=== PATIENT | male | born 2000 ===

== ENCOUNTER 2020-11-03 11:23 | Emergency (ER) | payer BC, SELFPAY ==
[2020-11-03 11:43] VITALS: BP 136/75; PULSE 76; RESP 16; TEMP 36.6; O2SAT 99; BMI 33.9
--- NOTE | 2020-11-03 11:56 | ED_ITS ---
HPI - Wound/Laceration General Chief Complaint: Wound/Laceration Stated Complaint: Puncture wound Time Seen by Provider: 11/03/20 11:49 History of Present Illness HPI narrative: The patient complains of a small puncture wound to the right knee which happened when a cutting tool dropped from his hand and punctured the area, he has no pain no difficulty bending or moving the knee no numbness weakness or tingling and is walking normally Related Data Previous Rx's Medication Instructions Recorded cephalexin 500 mg tablet 500 mg PO TID 2 Days #6 tab 11/03/20 Allergies Allergy/AdvReac Type Severity Reaction Status Date / Time No Known Allergies Allergy Verified 11/03/20 11:42 Review of Systems Review of Systems: Positive for right knee puncture wound Negatives are no dizziness no weakness no numbness weakness or tingling no joint pain no difficulty walking no active bleeding Yes all other systems are reviewed and are negative [facility] Past Medical History Source: nursing notes reviewed Surgical History (Updated 11/03/20 @ 11:48 by Valencia Barrientos) History of tonsillectomy and adenoidectomy Social History Social History Advance Directives: Yes Advance Directives Information Provided: Yes Advance Directives on File: No Physical Exam Vital Signs: Vital Signs: Last Vital Signs Temp 97.9 F 11/03/20 11:43 Pulse 76 11/03/20 11:43 Resp 16 11/03/20 11:43 BP 136/75 11/03/20 11:43 Pulse Ox 99 11/03/20 11:43 Body Mass Index 33.9 General appearance no acute distress The head is normocephalic atraumatic Neck is supple Respiratory no distress Extremities full range of motion x4 Gait is normal Right knee has a 1 cm laceration which is not bleeding not gaping, there is full range of motion in the knee there is no tenderness or swelling it is neurovascular intact distal Course Course Course Narrative: Superficial puncture wound is cleansed and irrigated with normal saline, patient is given a tetanus shot Procedure note the laceration after was clean started bleeding so 2 sutures were placed anesthesia was 3 cc of 1% lidocaine No foreign body was seen Wound was copiously irrigated and 2 4-0 nylon sutures were placed in 1 cm right knee laceration Discharge Plan Discharge Clinical Impression: Laceration Patient Disposition: Home, Self-Care Additional Instructions: Stitches out in 5-7 days Apply antibiotic ointment and keep covered for several days Return any time for redness swelling discharge from wound any sign of infection or any concerns You got a tetanus shot We are doing 2 days of preventative antibiotic Prescriptions: New cephalexin 500 mg tablet 500 mg PO TID 2 Days Qty: 6 RF: 0 Interventions: ED Discharge Assessment Last Done: 11/03/20 12:38 Discharge Date/Time: 11/03/20 12:40
[2020-11-03] MEDS: Diphth,Pertus(ACell),Tet Adult 0.5 ML SYRINGE IM (12:03)
[2020-11-03] MEDS: Lidocaine HCl 1 % MPF 5 ML VIAL SUBCUT (12:13)
[2020-11-03] MEDS: cephALEXin 500 MG CAPSULE PO (12:37)
== END 2020-11-03 12:40 | disposition home or self-care (01) ==
PROVIDERS: Emergency Provider Emergency Medicine
DX: S81.011A Laceration without foreign body, right knee, initial encounter (principal); W20.8XXA Other cause of strike by thrown, projected or falling object, initial encounter; Y93.9 Activity, unspecified; Y92.9 Unspecified place or not applicable; Y99.9 Unspecified external cause status
CPT/HCPCS: 12001; 90471; 90715; 99283; 99284

== ENCOUNTER 2024-04-08 10:46 | Emergency (ER) | payer BC, SELFPAY ==
[2024-04-08] VITALS (8 sets, daily range): BP systolic 132–156; BP diastolic 70–84; PULSE 77–99; RESP 16–19; TEMP 36.8–37.1; O2SAT 98–100; BMI 33.1
--- NOTE | ~2024-04-08 | CT_ITS ---
EXAMINATION: CTA NECK WITH CONTRAST (STROKE) CTA BRAIN WITH CONTRAST (STROKE) CLINICAL INFORMATION: Suspect acute stroke. Assess for major vessel occlusion. Please call report. COMPARISON: None available. TECHNIQUE: CTA of the head and neck was performed in the axial plane from the mediastinum to the skull vertex using 7 0 mL Omnipaque 350 intravenous contrast. Additional reformatted multiplanar images including maximum intensity projection MIP images are generated on the CT workstation. This CT examination was performed using dose optimization techniques as appropriate, variously including the following: *Automated exposure control *Adjustment of mA and/or kV according to patient size (this includes techniques or standardized protocols for targeted exams where dose is matched to indication/reason for exam; i.e. extremities or head) *Use of iterative reconstruction technique FINDINGS: The degree of stenosis determined by criteria similar to NASCET. Brain: Postcontrast there is no abnormal enhancing mass, lesion, edema or midline shift. There is symmetrical perfusion seen to bilateral cerebral cortex and in the posterior fossa. Neck CTA: The thoracic arch is widely patent with a normal three-vessel branching. Origins of bilateral common carotid and vertebral arteries are widely patent. Bilateral common carotid, bifurcation into internal and external carotid arteries are normal. Bilateral internal carotid arteries are widely patent throughout the neck extending to the skull base. Both vertebral arteries are patent. The left vertebral artery appears dominant. There are patent throughout their entire course. Bilateral jugular veins are patent as well the left being dominant. Neck: There is diffuse mucoperiosteal thickening bilateral maxillary, ethmoid sinuses. The mastoid sinuses are clear. Visualized bilateral parotid, submandibular glands and thyroid lobes are symmetrical. The entire nasopharyngeal and oropharyngeal airway is widely patent. No enhancing neck mass or lymphadenopathy seen. No abnormal size axillary lymph nodes seen. The thyroid lobes are symmetric and normal. The lung apices are clear. There is reversal of cervical lordosis with vertebral heights, alignment and disc heights are normal. Brain CTA: Bilateral internal carotid arteries along the petrous, cavernous and supraclinoid ICA segments are widely patent. No aneurysm or narrowing seen. The ICA CCA branch normally into anterior and middle several arteries. No aneurysm or atherosclerotic narrowing of thrombus seen. Both vertebral arteries March to form basilar artery. The basilar artery terminates into bilateral posterior cerebral arteries which are widely patent. The secondary, tertiary arteries and the capillaries reveal homogeneous enhancement of the cerebral cortex and medulla without any vascular defect. The venous sinus is opacified with a dominant right transverse sinus. The sigmoid sinuses are patent as well. A dominant right jugular vein is seen. CT/CT angio head neck STROKE IMPRESSION: Unremarkable CTA neck and brain: There is a dominant left vertebral artery is noted. This critical test result is communicated to: Hardy Lau by tiger text at 1.30 pm. Electronically signed by: Jersey Gentile MD 04/08/2024 01:31 PM [facility]
--- NOTE | ~2024-04-08 | CT_ITS ---
EXAMINATION: CT HEAD WITHOUT CONTRAST (STROKE PROTOCOL) CLINICAL INFORMATION: Stroke protocol. Difficulty with word finding COMPARISON: None available. TECHNIQUE: Contiguous axial imaging was performed from the skull base to vertex without intravenous administration of contrast. This CT examination was performed using dose optimization techniques as appropriate, variously including the following: *Automated exposure control *Adjustment of mA and/or kV according to patient size (this includes techniques or standardized protocols for targeted exams where dose is matched to indication/reason for exam; i.e. extremities or head) *Use of iterative reconstruction technique FINDINGS: There is no acute intra-axial, extra-axial bleed, masses or midline shift. There is no acute infarction evolution. The marcelo to white matter differentiation is maintained. The lateral ventricles are symmetrical in size and configuration without enlargement. Bone windows reveal no calvarial abnormality. There is diffuse mucoperiosteal thickening almost opacifying the entire bilateral maxillary sinuses. Mild mucoperiosteal thickening involving ethmoid sinuses. Rest of the paranasal sinuses and mastoid air cells are well-aerated. Bone windows reveal no calvarial abnormality. There is no scalp soft tissue abnormality. CT/CT head for STROKE IMPRESSION: No acute intracranial process seen. This critical result was discussed with Jerry Julian at 11:20 a.m. on 04/08/2024. It was ascertained that the content and urgency of the report was understood at the time of direct communication. Electronically signed by: Jersey Gentile MD 04/08/2024 11:33 AM [facility] [place]
--- NOTE | 2024-04-08 10:57 | ECG_ITS ---
Test Reason : stroke Blood Pressure : / mmHG Vent. Rate : 081 BPM Atrial Rate : 081 BPM P-R Int : 138 ms QRS Dur : 098 ms QT Int : 378 ms P-R-T Axes : 044 052 024 degrees QTc Int : 439 ms Normal sinus rhythm Normal ECG No previous ECGs available Referred By: Hardy Monique Electronically Signed By:JAYDEN JOHNSON MD
--- NOTE | 2024-04-08 11:05 | ED.GENADULT ---
HPI - General Adult General Chief complaint: Altered Mental Status Stated complaint: VISUAL CHANGES, R HAND NUMBNESS PER EMS Time Seen by Provider: 04/08/24 10:57 Source: patient Mode of arrival: ambulatory Limitations: no limitations History of Present Illness ED Provider: LEONILA Lau HPI narrative: 23-year-old male presents with difficulty with word finding, trouble concentrating, bilateral dark in vision, posterior headache ongoing suddenly since 0800. Patient reports nothing like this has ever happened to him before. He reports he just does not feel right. He does report at some point his right hand/right upper extremity and right side of face went numb however this resolved. He does report he was sick around [place]. He denies weakness, fevers, chills, dizziness, chest pain, shortness of breath, nausea, vomiting, abdominal pain No recent falls or trauma. No chiropractic manipulation. No neck pain. NIHSS-0 on exam Related Data Previous Rx's ?Medication ?Instructions ?Recorded cephalexin 500 mg tablet 500 mg PO TID 2 days #6 tabs 11/03/20 diphenhydramine HCl 25 mg capsule 25 mg PO TID PRN allergic reaction 04/08/24 (Benadryl) #20 caps ketorolac 10 mg tablet 10 mg PO TID PRN pain 5 days #15 04/08/24 tabs metoclopramide HCl 10 mg tablet 10 mg PO Q6H PRN headache #20 tabs 04/08/24 (Reglan) Allergies Allergy/AdvReac Type Severity Reaction Status Date / Time No Known Allergies Allergy Verified 04/08/24 11:08 Review of Systems Review of Systems: Yes all other systems are reviewed and are negative [facility] Past Medical History Attestation statement: The following information was validated with the patient. Source: old records reviewed and nursing notes reviewed Surgical History History of tonsillectomy and adenoidectomy Social History Social History Smoked in Last 30 Days: No Use of substances other than those prescribed or required for medical reasons: No Advance Directives: No Advance Directives Information Provided: Yes Do you have a plan to hurt others: No Plan Physical Exam ED Vital Signs: Vital Signs - 24 hr 04/08/24 11:00 04/08/24 11:35 04/08/24 12:18 Temperature 98.5 F Pulse Rate 80 77 84 Respiratory Rate 16 18 19 Blood Pressure 135/72 135/84 145/78 H Pulse Oximetry 99 98 100 Oxygen Delivery Method Room Air Room Air Room Air 04/08/24 12:45 04/08/24 13:41 04/08/24 15:55 Temperature 98.3 F 98.7 F Pulse Rate 85 90 99 Respiratory Rate 18 18 16 Blood Pressure 143/81 H 145/75 H 132/70 Pulse Oximetry 100 100 98 Oxygen Delivery Method Room Air Room Air Room Air BMI result Body Mass Index 33.1 vss Appearance: Alert.? Oriented X3.? No acute distress.?+ intermittent word salad ( resolved on revaluation) Head: Normocephalic, atraumatic, no step-offs or deformities Eyes: Pupils equal, round and reactive to light.? Neck: Normal inspection.? Neck supple.? CVS: Normal heart rate and rhythm.? Pulses normal.? Respiratory: No respiratory distress.? Breath sounds normal.? Abdomen: Soft and nontender.? Skin: Skin warm and dry.? Normal skin color.? Normal skin turgor.? Extremities: No lower extremity edema.? No calf ttp. 5/5 strength to bilateral upper and lower extremities Neuro: Oriented X 3.? No motor deficit.? No sensory deficit. CN 2-12 intact Course Reevaluation(s) Reevaluation #1: CBC unremarkable. Chemistry with no acute findings needing intervention. Point of care normal. INR normal. Patient's head CT no acute intracranial process seen. Time: 11:57 Reevaluation #2: Patient has been sleeping, without complaints. No more episodes of aphasia or word salad. Patient's family at bedside. Patient did test positive for RSV. This could explain his viral symptoms have been ongoing since . CTA still pending Time: 12:45 Reevaluation #3: CTA unremarkable CTA neck and brain. There is a dominant left vertebral artery. This case was discussed with my attending Dr. Bar. And it was also mentioned to neurology Dr. Brower who thinks likely complex migrane. Time: 13:38 Additional Reevaluation(s): Sign out to Murray Vaca 3:00 p.m. received sign-out with the patient in stable condition and reassessment pending. 4:05 PM reassessment at this time, patient is awake and alert and sitting in the exam stretcher. Patient confirms that he had URI symptoms earlier in the week which have since resolved, including rhinorrhea and fever. He reports his symptoms today of headache, paresthesias, and aphasia have completely resolved. He is feeling much better. Denies any headache dizziness, paresthesias, neck or back pain. He feels that his mentation is at baseline as well as his family agrees who are at the bedside. I reviewed all labs and imaging findings with the patient and his family at the bedside, per his request. Slight elevation in CRP which is likely due to RSV infection. He is afebrile and hemodynamically stable. There is no leukocytosis. He is not having any neck pain at this time. Patient did question the possibility of meningitis. Given above, this is less likely however I have offered to perform an LP and have discussed all risks and benefits with the patient to perform lumbar puncture. Patient has refused at this time it would like to monitor symptoms. He agrees that if symptoms return, worsen or other any other concerns he will return to the emergency department. Of note, slight elevation in triglycerides which the patient will follow up with his PCP. Patient expresses understanding of all discharge instructions and has no further questions at this time. Medications Administered Discontinued Medications Generic Name Dose Route Start Last Admin Trade Name Rylan PRN Reason Stop Dose Admin Diphenhydramine HCl 25 mg 04/08/24 11:06 04/08/24 12:15 Diphenhydramine Hcl 50 Mg/Ml Vial IVPUSH 04/08/24 11:07 25 mg ONCE ONE Administration Iohexol 100 ml 04/08/24 11:18 04/08/24 11:21 Iohexol 350 Mg/Ml 100 Ml Infus..Btl IV 04/08/24 11:19 70 ml ONCE ONE Administration Ketorolac Tromethamine 15 mg 04/08/24 11:06 04/08/24 12:15 Ketorolac Tromethamine 15 Mg/Ml Vial IVPUSH 04/08/24 11:07 15 mg ONCE ONE Administration Metoclopramide HCl 10 mg 04/08/24 11:06 04/08/24 12:15 Metoclopramide Hcl 10 Mg/2 Ml Vial IVPUSH 04/08/24 11:07 10 mg ONCE ONE Administration Morphine Sulfate 2 mg 04/08/24 14:33 04/08/24 14:55 Morphine Sulfate 2 Mg/Ml Cartridge IVPUSH 04/08/24 14:34 2 mg ONCE ONE Administration Protocol Medical Decision Making Medical Decision Making [facility] Narrative: 1106 23-year-old male presents with difficulty with word finding, aphasia, posterior headache since 0800 PE + intermittent word salad strength 5/5/ UE and LE. Hx and pe concerning for complex migraine vs tia vs stroke. Unlikely carotid dissection, aneurysm rupture. No meningeal signs, unlikely encephalitis, meningitis. Patient reports recent illness will rule out viral illness Plan stroke protocol, labs Differential Diagnosis Differential Diagnoses: The differential diagnosis associated with the presentation includes (Hx and pe concerning for complex migraine vs tia vs stroke. Unlikely carotid dissection, aneurysm rupture. No meningeal signs, unlikely encephalitis, meningitis) Admission/Observation Consideration of admission/observation: Escalation of care including admission/observation considered Consult Healthcare Provider Management of the patient was discussed with: Director Of Academic Support Lab Data [facility] Lab Attestation statement: I reviewed the patient's lab results. 04/08/24 11:45 04/08/24 11:45 Labs: Lab Results 04/08/24 04/08/24 04/08/24 Range/Units 11:05 11:07 11:45 WBC 7.7 (4.8-10.8) X10*3/uL RBC 5.02 (4.60-5.80) X10*6/uL Hgb 15.4 (14.0-18.0) g/dl Hct 42.4 (42.0-52.0) % MCV 84.5 (80.0-98.0) fL MCH 30.7 (27.0-33.0) pg MCHC 36.3 H (31.0-36.0) g/dl RDW 11.8 (11.0-16.0) % Plt Count 338 (160-400) X10*3/uL MPV 8.8 L (9.4-12.4) fL Immature Gran % (Auto) 0.4 (0.0-0.4) % Neut % (Auto) 53.8 (45-73) % Lymph % (Auto) 34.7 (20-40) % [place] % (Auto) 9.3 (2-11) % Eos % (Auto) 1.7 (0-4) % Baso % (Auto) 0.1 (0-2) % Lymph # (Auto) 2.7 (1.2-4.9) X10*3/uL [place] # (Auto) 0.7 (0.1-1.2) X10*3/uL Eos # (Auto) 0.1 (0.0-0.4) X10*3/uL Baso # (Auto) 0.0 (0.0-0.2) X10*3/uL Abs Immat Gran (auto) 0.03 (0.00-0.03) X10*3/uL Absolute Neuts (auto) 4.1 (2.0-8.3) x10*3/uL Absolute Nucleated RBC 0.000 (0.0-0.012) X10*3/uL Nucleated RBC % (auto) 0.0 (0.0-0.2) /100WBC ESR 7 (0-15) MM/HR PT 12.0 (10.9-12.4) SEC Whole Blood PT 12.8 (11.1-13.5) sec INR 1.0 (0.9-1.1) Whole Blood INR 1.1 (0.9-1.1) APTT 29.5 (26.0-36.8) SEC Sodium 136 (135-145) mmol/L Potassium 3.6 (3.3-5.1) mmol/L Chloride 106 (96-108) mmol/L Carbon Dioxide 23 (22-29) mmol/L Anion Gap 11 L (12-20) BUN 10 (9-16) mg/dL Creatinine 0.74 (0.5-1.4) mg/dL Estim Creat Clear Calc 169.9 Estimated GFR > 60 POC Glucose 96 (60-115) mg/dL Random Glucose 92 (60-115) mg/dL Calcium 9.1 (8.4-10.2) mg/dL Troponin I High Sens < 2.7 (<3.5-35.0) ng/L C-Reactive Protein 0.67 H (< or = 0.50) mg/dL Triglycerides 172 H (<150) mg/dL Cholesterol 143 (<200) mg/dL LDL Cholesterol, Calc 87 (<100) mg/dL HDL Cholesterol 22 L (>40) mg/dL Influenza Type A (PCR) (Negative) Influenza Type B (PCR) (Negative) RSV RNA Qual (PCR) (Negative) SARS-CoV-2 RNA (RT-PCR) (Negative) 04/08/24 Range/Units 12:01 WBC (4.8-10.8) X10*3/uL RBC (4.60-5.80) X10*6/uL Hgb (14.0-18.0) g/dl Hct (42.0-52.0) % MCV (80.0-98.0) fL MCH (27.0-33.0) pg MCHC (31.0-36.0) g/dl RDW (11.0-16.0) % Plt Count (160-400) X10*3/uL MPV (9.4-12.4) fL Immature Gran % (Auto) (0.0-0.4) % Neut % (Auto) (45-73) % Lymph % (Auto) (20-40) % [place] % (Auto) (2-11) % Eos % (Auto) (0-4) % Baso % (Auto) (0-2) % Lymph # (Auto) (1.2-4.9) X10*3/uL [place] # (Auto) (0.1-1.2) X10*3/uL Eos # (Auto) (0.0-0.4) X10*3/uL Baso # (Auto) (0.0-0.2) X10*3/uL Abs Immat Gran (auto) (0.00-0.03) X10*3/uL Absolute Neuts (auto) (2.0-8.3) x10*3/uL Absolute Nucleated RBC (0.0-0.012) X10*3/uL Nucleated RBC % (auto) (0.0-0.2) /100WBC ESR (0-15) MM/HR PT (10.9-12.4) SEC Whole Blood PT (11.1-13.5) sec INR (0.9-1.1) Whole Blood INR (0.9-1.1) APTT (26.0-36.8) SEC Sodium (135-145) mmol/L Potassium (3.3-5.1) mmol/L Chloride (96-108) mmol/L Carbon Dioxide (22-29) mmol/L Anion Gap (12-20) BUN (9-16) mg/dL Creatinine (0.5-1.4) mg/dL Estim Creat Clear Calc Estimated GFR POC Glucose (60-115) mg/dL Random Glucose (60-115) mg/dL Calcium (8.4-10.2) mg/dL Troponin I High Sens (<3.5-35.0) ng/L C-Reactive Protein (< or = 0.50) mg/dL Triglycerides (<150) mg/dL Cholesterol (<200) mg/dL LDL Cholesterol, Calc (<100) mg/dL HDL Cholesterol (>40) mg/dL Influenza Type A (PCR) NEGATIVE (Negative) Influenza Type B (PCR) NEGATIVE (Negative) RSV RNA Qual (PCR) POSITIVE A (Negative) SARS-CoV-2 RNA (RT-PCR) NEGATIVE (Negative) Independent Interpretation I performed an independent interpretation of an: CT Scan (CT/CT angio head neck STROKE IMPRESSION: Unremarkable CTA neck and brain: There is a dominant left vertebral artery is noted. This critical test result is communicated to: Hardy Lau by tiger text at 1.30 pm.) Interpretation: CT/CT head for STROKE IMPRESSION: No acute intracranial process seen. This critical result was discussed with Jerry Julian at 11:20 a.m. on 04/08/2024. It was ascertained that the content and urgency of the report was understood at the time of direct communication. Electronically signed by: Jersey Gentile MD 04/08/2024 11:33 AM [facility] Radiology Impression Discussion of test interpretation with radiology: I have reviewed the radiologist's reading. Independent Historian Clinical information obtained from an independent historian. History obtained from or confirmed by: EMS Tests considered The following testing was considered but not selected: NIH Stroke Scale/Score (NIHSS) from [email or web address] on 04/08/2024 All calculations should be rechecked by clinician prior to use RESULT SUMMARY: 1 points NIH Stroke Scale INPUTS: 1A: Level of consciousness ?> 0 = Alert; keenly responsive 1B: Ask month and age ?> 0 = Both questions right 1C: 'Blink eyes' & 'squeeze hands' ?> 0 = Performs both tasks 2: Horizontal extraocular movements ?> 0 = Normal 3: Visual galdamez ?> 0 = No visual loss 4: Facial palsy ?> 0 = Normal symmetry 5A: Left arm motor drift ?> 0 = No drift for 10 seconds 5B: Right arm motor drift ?> 0 = No drift for 10 seconds 6A: Left leg motor drift ?> 0 = No drift for 5 seconds 6B: Right leg motor drift ?> 0 = No drift for 5 seconds 7: Limb Ataxia ?> 0 = No ataxia 8: Sensation ?> 0 = Normal; no sensory loss 9: Language/aphasia ?> 1 = Mild-moderate aphasia: some obvious changes, without significant limitation 10: Dysarthria ?> 0 = Normal 11: Extinction/inattention ?> 0 = No abnormality Critical Care Time Critical Care Time Critical Care Time: Yes Total Critical Care Time: 45 Attestation: I attest to this time spent taking care of the patient, obtaining history, physical, reviewing labs, imaging, treatment of patients condition +/- specialist/hospitalist consult Discharge Plan Discharge Clinical Impression: Acute migraine, Aphasia Respiratory syncytial virus (RSV) infection Qualifiers: Laterality: unspecified laterality Patient Disposition: Home, Self-Care Instructions: Migraine Headache (ED), Aphasia (DC) Additional Instructions: Watch for any worsening symptoms, severe pain, vision changes, or any other concern return immediately to the emergency department. Your viral swab is positive for RSV. Of note, your triglycerides are elevated at 172 and your HDL cholesterol is low at 22. Your total cholesterol is 143, normal range. Your LDL cholesterol is 87, normal range. You should have your cholesterol rechecked by your PCP. We will contact you if any remaining lab tests pending related to Lyme are positive. Take your medications as prescribed. If you were prescribed antibiotics today, it is important that you take your medication to their entirety, do not skip any doses, do not finish them early. Follow-up with your primary care provider this week. Return to the emergency department with new or worsening symptoms. Such as fevers, chills, chest pain, shortness of breath, nausea, vomiting, dizziness, headache, vision changes, lethargy In case of emergency call 911 You were given a migraine cocktail this includes Benadryl, Reglan and Toradol. Please take Reglan and Benadryl together, taking Reglan alone can lead to involuntary muscle spasms. Toradol has been sent to your pharmacy, you tolerated this well in the department. Please take this as prescribed do not take this with ibuprofen, or other NSAIDs, do not mix this with alcohol. Side effects of this medication including increased risk for bleeding and possible kidney injury. Prescriptions: New ketorolac 10 mg tablet 10 mg PO TID PRN (Reason: pain) 5 Days Qty: 15 0RF Rx Instructions: Tolerated IM or IV in department diphenhydramine HCl [Benadryl] 25 mg capsule 25 mg PO TID PRN (Reason: allergic reaction) Qty: 20 0RF metoclopramide HCl [Reglan] 10 mg tablet 10 mg PO Q6H PRN (Reason: headache) Qty: 20 0RF No Action cephalexin 500 mg tablet 500 mg PO TID 2 Days Qty: 6 0RF Rx Instructions: Antibiotic to prevent infection 2 day course Referrals: Atul Perez DO [Primary Care Provider] - 2 days Stand Alone Forms: Work/School Release Print Language: Hungarian
[2024-04-08 11:09] LABS: Prothrombin Time Whole Bld POC 12.8 sec (11.1-13.5); ~PT, ~INR - Anti Coag Clinic 1.1 (0.9-1.1)
[2024-04-08 11:10] LABS: Glucose, Whole Blood 96 mg/dL (60-115)
[2024-04-08] MEDS: iohexoL 350 MG/ML 100 ML INFUS..BTL IV (11:21)
[2024-04-08 11:50] LABS: MANUAL DIFF FLAG NO
--- NOTE | 2024-04-08 11:50 | PC.NURSE ---
pt returned from CT at this time. vss and up to date. nsr on the teletypesetter monitor. labs obtained/sent to lab. ekg performed by tech. neuros currently intact. face symmetrical. no slur in speech noted. pt able to speak in full/clear sentences w/o difficulty. strength equal bilaterally. pt on RA w/o difficulty. no sob/wob noted. respirations even/unlabored. family bedside for support. plan of care ongoing. call gregory placed within reach.
[2024-04-08 11:53] LABS: Basophils Percent Auto 0.1 % (0-2); Eosinophils Absolute Auto 0.1 X10*3/uL (0.0-0.4); Eosinophils Percent Auto 1.7 % (0-4); Hematocrit 42.4 % (42.0-52.0); Hemoglobin 15.4 g/dl (14.0-18.0); Imm Gran Abs Auto 0.03 X10*3/uL (0.00-0.03); Imm Gran Pct Auto 0.4 % (0.0-0.4); Lymphocytes Absolute Auto 2.7 X10*3/uL (1.2-4.9); Lymphocytes Percent Auto 34.7 % (20-40); Mean Corpuscular HGB Conc 36.3 g/dl (31.0-36.0); Mean Corpuscular Hemoglobin 30.7 pg (27.0-33.0); Mean Corpuscular Volume 84.5 fL (80.0-98.0); Mean Platelet Volume 8.8 fL (9.4-12.4); Monocytes Absolute Auto 0.7 X10*3/uL (0.1-1.2); Monocytes Percent Auto 9.3 % (2-11); Neutrophils Absolute Auto 4.1 x10*3/uL (2.0-8.3); Neutrophils Percent Auto 53.8 % (45-73); Platelet Count 338 X10*3/uL (160-400); Red Blood Count 5.02 X10*6/uL (4.60-5.80); Red Cell Distribution Width 11.8 % (11.0-16.0); White Blood Count 7.7 X10*3/uL (4.8-10.8)
[2024-04-08 12:04] LABS: Partial Thromboplastin Time 29.5 SEC (26.0-36.8)
[2024-04-08] MEDS: diphenhydrAMINE HCL 50 MG/ML VIAL 25 MG IVPUSH (12:15)
[2024-04-08] MEDS: Ketorolac Tromethamine 15 MG/ML VIAL IVPUSH (12:15)
[2024-04-08] MEDS: Metoclopramide HCl 10 MG/2 ML VIAL IVPUSH (12:15)
--- NOTE | 2024-04-08 12:15 | PC.NURSE ---
pt passed nursing swallow evaluation w/o difficulty. pt able to maintain secretions on his own. respirations remain even/unlabored. plan of care ongoing.
[2024-04-08 12:20] LABS: Anion Gap 11 (12-20); Blood Urea Nitrogen 10 mg/dL (9-16); Calcium 9.1 mg/dL (8.4-10.2); Carbon Dioxide 23 mmol/L (22-29); Chloride 106 mmol/L (96-108); Cholesterol 143 mg/dL (<200); Creatinine Clr Calc Pharmacy 169.9; Estimated Glomerular Filt Rate > 60; Glucose Random 92 mg/dL (60-115); HDL Cholesterol 22 mg/dL (>40); LDL Cholesterol Calculated 87 mg/dL (<100); Potassium 3.6 mmol/L (3.3-5.1); Sodium 136 mmol/L (135-145); Triglycerides 172 mg/dL (<150)
[2024-04-08 12:27] LABS: Troponin-I High Sensitivity < 2.7 ng/L (<3.5-35.0)
[2024-04-08 12:45] LABS: Influenza A PCR NEGATIVE (Negative); Influenza B PCR NEGATIVE (Negative); Resp Syncy Virus RNA Qual PCR POSITIVE (Negative); SARS COV2 PCR INHOUSE NEGATIVE (Negative)
--- NOTE | 2024-04-08 12:47 | PC.NURSE ---
pt still verbalizing 6/10 headache on the left side of his head starting from his eye and going through the back of his skull. neuros remain intact. face symmetrical. no facial droop noted. pt able to speak in full/clear sentences. no slurred speech noted. provider notified/aware of results. respirations remain even/unlabored. family remains bedside. plan of care ongoing. call gregory placed within reach.
[2024-04-08 13:01] LABS: Stroke Lab Use COMPLETE
[2024-04-08 14:45] LABS: C Reactive Protein 0.67 mg/dL (< or = 0.50)
[2024-04-08] MEDS: Morphine Sulfate 2 MG/ML CARTRIDGE IVPUSH (14:55)
[2024-04-08 15:05] LABS: Erythrocyte Sedimentation Rate 7 MM/HR (0-15)
--- NOTE | 2024-04-08 15:57 | PC.NURSE ---
Assumed care of this patient at 1500, patient resting quietly on stretcher, pain feeling much better after pain med. LEONILA Goa at bedside no speaking w/ patient.
[2024-04-12 00:48] LABS: A. Phagocytphilium DNA,RT-PCR NOT DETECTED (NOT DETECTED); Babesia Microti DNA, RT-PCR NOT DETECTED (NOT DETECTED); Borrelia Miyamotoi,DNA RT-PCR NOT DETECTED (NOT DETECTED); E.Chaffeensis DNA RT-PCR NOT DETECTED (NOT DETECTED); Lyme(Borrelia ssp)DNA RT-PCR NOT DETECTED (NOT DETECTED)
== END 2024-04-08 16:28 | disposition home or self-care (01) ==
PROVIDERS: Physician Assistant; Emergency Provider Emergency Medicine; PCP Family Medicine
DX: G43.909 Migraine, unspecified, not intractable, without status migrainosus (principal); R47.01 Aphasia; R29.701 NIHSS score 1; Z03.818 Encounter for observation for suspected exposure to other biological agents ruled out
CPT/HCPCS: 0241U; 36415; 70450; 70496; 70498; 80048; 80061; 82947; 84484; 85025; 85610; 85652; 85730; 86140; 87468; 87469; 87478; 87484; 87798; 93005; 96374; 96375; 99284; 99285; J1200; J1885; J2270; J2765; Q9967

== ENCOUNTER → 2024-04-08 10:57 | Outpatient (BNV) | payer BC, SELFPAY | PROVIDERS: Emergency Provider Emergency Medicine; PCP Family Medicine; Visit Provider Radiology Diagnostic Radiology | DX: I66.9 Occlusion and stenosis of unspecified cerebral artery (principal); I63.9 Cerebral infarction, unspecified; R47.01 Aphasia | CPT/HCPCS: 70450; 70496; 70498 ==

== ENCOUNTER → 2024-04-08 10:57 | Outpatient (BNV) | payer BC, SELFPAY | PROVIDERS: Emergency Provider Emergency Medicine; PCP Family Medicine; Visit Provider Internal Medicine Cardiovascular Disease | DX: I63.9 Cerebral infarction, unspecified (principal) | CPT/HCPCS: 93010 ==